=== PATIENT | female | born 2000 | race Caucasian/White ===

== ENCOUNTER 2020-09-15 12:46 | Emergency (ER) | payer MEDICAID, SELFPAY ==
[2020-09-15 13:01] VITALS: BP 137/68; PULSE 66; RESP 16; TEMP 36.8; O2SAT 98; BMI 30.4
--- NOTE | 2020-09-15 14:42 | ED.EYEPROB ---
HPI - Eye Problem General Chief complaint: Eye Problems Stated complaint: [facility] Time Seen by Provider: 09/15/20 14:22 Source: patient Mode of arrival: ambulatory Limitations: no limitations History of Present Illness HPI Narrative: L eye pain x 4 days thinks something got in it, has had discharge and erythema chief complaint: eye pain and eye redness Onset (ago): day(s) (4) Onset description: gradual Duration: constant Location: left eye Eye Symptoms: burning, redness, pain, foreign body sensation, itching and discharge Place: home Mechanism: none Severity: moderate If Pain, Quality: burning Context: contact lens use (does wear contacts but it was only in for 1 hour and she has not used it since) Associated symptoms: none Treatments Prior to Arrival: none Related Data Previous Rx's Medication Instructions Recorded ofloxacin See Rx Instructions .ROUTE 09/15/20 .COMPLEX #10 ml Allergies Allergy/AdvReac Type Severity Reaction Status Date / Time apple Allergy Swelling Verified 09/15/20 13:04 Review of Systems Review of Systems: Constitutional : No Fever, No Chills ENT/Mouth : No sore throat, No Rhinorrhea Eyes: pos Eye Pain, No Swelling, pos Redness Cardiovascular : No Chest Pain, No SOB Respiratory : No Cough, No Sputum, No Wheezing Gastrointestinal : No Nausea, No Vomiting Musculoskeletal : No joint pain, No Myalgias, No Joint Swelling Skin : No Skin Lesions, No rash Neuro : No Weakness, No Numbness, No Dizziness, No Headache PMFSH Past Medical History Attestation statement: The following information was validated with the patient. Medical History No known health problems Social History Social History (Updated 09/15/20 @ 14:46 by Lee Ann Childers DO) Smoking Status: Never smoker Advance Directives: No Advance Directives Information Provided: No Physical Exam Vital Signs: Vital Signs: Last Vital Signs Temp 98.2 F 09/15/20 13:01 Pulse 66 09/15/20 13:01 Resp 16 09/15/20 13:01 BP 137/68 09/15/20 13:01 Pulse Ox 98 09/15/20 13:01 Body Mass Index 30.4 Appearance: Alert. Oriented X3. No acute distress. Eyes: Pupils equal, round and reactive to light. L eye diffuse erythema, mild conjunctival swelling, scant cloudy discharge with matting noted ENT: Pharynx normal. Neck: Normal inspection. Neck supple. CVS: Normal heart rate and rhythm. Pulses normal. Respiratory: No respiratory distress. Breath sounds normal. Abdomen: Soft and nontender. Skin: Skin warm and dry. Normal skin color. Normal skin turgor. Extremities: No lower extremity edema. No calf ttp Neuro: Oriented X 3. No motor deficit. No sensory deficit. Course Course Course Narrative: with valentin lamp and fluorescein - no FB no corneal abrasions no dendritic branches, no hyphema MDM - Eye Problem MDM Narrative Medical decision making narrative: 20 yo female who does wear lens but denies recent use comes in with discharge and reddened irritated eye - denies vision changes - will stain eye and likely treat for conjunctivitis. Discharge Plan Discharge Clinical Impression: Bacterial conjunctivitis Patient Disposition: Home, Self-Care Instructions: Conjunctivitis (ED) Additional Instructions: return to ED for any worsening symptoms or concerns you should folllow up with your eye doctor this week, NO CONTACTs X 1 WEEK WHILE SYMPTOMS PERSIST Prescriptions: New ofloxacin 0.3 % drops See Rx Instructions .ROUTE .COMPLEX Qty: 10 RF: 0
[2020-09-15] MEDS: Tetracaine HCl/PF 0.5% Oph Sol 4 ML DROPS 1 DROP EYE-LEFT (15:11)
[2020-09-15] MEDS: Fluorescein Sodium STRIP 1 STRIP EYE-LEFT (15:11)
--- NOTE | 2020-09-15 15:11 | PC.NURSE ---
dr griffin at bedside for eye exam
== END 2020-09-15 15:15 | disposition home or self-care (01) ==
PROVIDERS: Emergency Provider Emergency Medicine
DX: H10.89 Other conjunctivitis (principal)
CPT/HCPCS: 99283